=== PATIENT | female | born 1990 | race Caucasian/White ===

== ENCOUNTER 2022-02-08 16:00 | Emergency (ER) | payer OTHER, SELFPAY | END 2022-02-08 17:58 | disposition left against medical advice (07) | PROVIDERS: Emergency Provider Emergency Medicine | DX: R69 Illness, unspecified (principal) ==

== ENCOUNTER 2025-03-24 14:44 | Outpatient (AMB) | payer OTHER, SELFPAY ==
--- NOTE | 2025-03-24 14:47 | A.OFFVIS_ITS ---
Vital Signs 3 03/24/25 14:51 Height 5 ft 7 in Weight 141 lb 2 oz BMI 22.1 BP 119/72 Blood Pressure Location Lt brachial Position Sitting Pulse 85 Pulse Source Pulse Oximeter Pulse Oximetry (%) 100 Oxygen Delivery Method Room Air Intake Visit Reasons: Elbow pain after falling Intake Note: Pain day 02/18 Material Processor Required: No Allergies gabapentin Allergy (Severe, Verified 03/24/25 15:14) Rash [id number] Antimigraine Agents Allergy (Severe, Verified 03/24/25 15:14) Rash HPI Comments Details: The patient is a 34-year-old female presenting with chronic right elbow pain following a proximal radial head fracture. The injury occurred in November 2023 when she fell while roller skating after being collided with by a child, resulting in a fall on her right side. Initially, she experienced immediate pins and needles in her right forearm and hand and inability to use her right thumb, prompting an [facility] ER visit where no fracture was initially detected. She reports right elbow and hand pain with daily use or leaning with elbow against hard surfaces which causes immediate numbness and tingling in her right hand and elbow. Subsequent Urgent care evaluation at [facility] confirmed a proximal radial head fracture, and she was placed in a removable half cast for several weeks. Despite treatment, the fracture did not heal properly, leading to a radial head deformity as confirmed by a recent MRI arthrogram at [facility] per patient. Denies previous EMG or cervical spine imaging studies. Shoulder xrays were normal. Patient was seen at [facility] today and received right elbow cortisone injection with no relief so far. She is currently at PT, has not done OT therapy. The patient reports persistent pain and pins and needles sensation in the right hand, particularly right thumb and 3rd through 5th digits. She also experiences neck pain and pre-existing Chiari malformation, although no recent imaging has been conducted for this condition. She follows with Neurology, Dr. Nieto. The patient has a history of bursitis in the hip, for which she receives periodic steroid injections, and migraines, which have been managed with propranolol, albeit with limited success. She is allergic to gabapentin, which causes hives and rash, and has experienced adverse effects from Cymbalta, leading to its discontinuation. 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 She is right hand dominant. - Onset: Pain began following a fall in November 2023. - Quality: Described as constant pain with pins and needles sensations, throbbing, shooting, sharp, sore, aching, exhausting, radiating. - Location: Primarily in the right elbow, radiating to the hand. Intermittent neck pain with yes and no movements. - Exacerbating factors: Neck movements and certain arm positions increase pain (holding elbow against hard surfaces). - Relieving factors: None explicitly mentioned. - Affect: Pain impacts daily activities and mood, causing frustration. - Analgesia: Current medications include propranolol for migraines; meloxicam; previous use of Cymbalta was discontinued due to adverse effects. - Adverse Effects: Allergic reaction to gabapentin, adverse effects from Cymbalta. - Activities of Daily Living: Pain limits ability to lift children and perform household tasks. - Aberrant Drug Related Behaviors: None reported. 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 Family history of DVT Family history of breast cancer Diarrheal stools Chronic constipation Cervicalgia Cervical radiculitis Biliary dyskinesia Allergic rhinitis Arnold-Chiari malformation, type I Depression Anxiety RLS (restless legs syndrome) Basilar migraine Migraine without aura Surgical History (Updated 03/24/25 @ 15:14 by Corazon Siddiqui) History of oral surgery History of colonoscopy History of ankle surgery Family History (Updated 03/24/25 @ 15:21 by Corazon Siddiqui) Sister Alcoholism Mother Hypertension Hyperlipidemia Peripheral vascular disease Father Alcohol abuse Hyperlipidemia Hypertension Maternal Grandfather Colon cancer Paternal Aunt Breast cancer Social History Household Members: Spouse, Significant Other and Children Alcohol intake: current Alcohol intake frequency: a few times a month Patient Tobacco Use Status: Current everyday Tobacco user Cigarettes Per Day: 9 Current occupational status: unemployed Review of Systems Const Details: - Musculoskeletal: Reports chronic right elbow pain, neck pain, and hip bursitis. - Neurological: Reports pins and needles sensation in the right hand, migraines. - Allergic/Immunologic: Reports allergy to gabapentin causing hives and rash. - General: Denies diabetes. All systems reviewed & are unremarkable except as noted in HPI and below Physical Exam Vital Signs: Last Vital Signs Pulse 85 03/24/25 14:51 BP 119/72 03/24/25 14:51 Pulse Ox 100 03/24/25 14:51 Oxygen Delivery Method Room Air 03/24/25 14:51 BMI result Body Mass Index 22.1 General: Appears afebrile. Alert and oriented. Mood and affect appropriate. Follows and participates in conversation appropriately. Respiratory effort is unlabored. No cough. Able to transition from sit to stand unassisted. Ambulates with bilaterally normal heel strike and toe off. Neck Neck: Yes normal visual inspection, Yes full ROM, Yes no lymphadenopathy, Yes trachea midline, Yes supple, No anterior neck swelling, Yes no JVD, No prominent supraclavicular fat pad and No prominent dorsocervical fat pad Back/Spine/Pelvis Cervical Spine: normal cervical lordosis, No Lhermitte's sign positive, cervical muscular tenderness, pain with cervical ROM (with flexion and extension), No Cervical spine scars present, No cervical spasm and No Cervical spine tenderness Extrem General: Yes capillary refill normal, Yes no clubbing, cyanosis or edema and Yes no calf tenderness Right upper extremity: shoulder/upper arm Details: normal to inspection and normal ROM; no tenderness, no swelling, no ecchymosis, no crepitus and no unusual warmth, elbow/forearm (Limited ROM due to pain) Details: normal to inspection, tenderness Location: of the lateral epicondyle and of the radial head, crepitus and distal pulses intact; no swelling, no unusual warmth and no ecchymosis and wrist (+Phalen's, +Tinel's sign on the right. ) Details: tenderness, normal ROM (wrist pain with flexion), radial pulse present, ulnar pulse present and other (pins and needles in right thumb and right 3-5th digits); no swelling, no unusual warmth and no ecchymosis Results Reviewed Results Reviewed: 202212/03/2023 Assessment & Plan Assessment & Plan (1) Chronic pain of right elbow: Code(s): M25.521 - Pain in right elbow; G89.29 - Other chronic pain (2) Paresthesia of right upper extremity: Code(s): R20.2 - Paresthesia of skin Category: Medical (3) Cervical radiculitis: Code(s): M54.12 - Radiculopathy, cervical region Category: Medical (4) Cervicalgia: Code(s): M54.2 - Cervicalgia Category: Medical Plan We will proceed with EMG and NVC studies to assess for nerve compression, particularly focusing on the ulnar, median, and radial nerves, to determine the source of the pins and needles sensation and pain in the right hand and rule out cervical radiculopathy. Medical release request sent to [facility], [facility], and [facility] for previous right elbow imaging and procedures for review. Cervical spine x-ray will be conducted to evaluate any potential cervical spine issues that may be contributing to the patient's symptoms, especially given the history of neck pain and Chiari malformation. The patient will be referred to a Hand specialist for further evaluation and management of the elbow pain and potential neuropathy. The patient is advised to continue with current medications and to avoid gabapentin due to allergy. All questions and concerns have been answered and patient agreed with the plan. Follow-up will be scheduled to review the results of the diagnostic tests and to adjust the management plan accordingly. Patient was informed and verbally consented to the use of an ambient scribe for clinic note documentation during this visit. Orders: Orders 2 NE nerve conduction velocity Today G56.01 - Carpal tunnel syndrome, right upper limb, G89.29 - Other chronic pain, M25.521 - Pain in right elbow, R20.2 - Paresthesia of skin XR cervical spine w flex/ext Today M54.2 - Cervicalgia NE electromyogram (EMG) Today G56.01 - Carpal tunnel syndrome, right upper limb, G89.29 - Other chronic pain, M25.521 - Pain in right elbow, R20.2 - Paresthesia of skin Referrals 2 Hand Surgery Referral G89.29 - Other chronic pain, M25.521 - Pain in right elbow, R20.2 - Paresthesia of skin Coding Level of Care Code New Pt Level 4 (68771) Diagnoses Chronic pain of right elbow M25.521; G89.29 Paresthesia of right upper extremity R20.2 Cervical radiculitis M54.12 Cervicalgia M54.2
[2025-03-24 14:51] VITALS: BP 119/72; PULSE 85; O2SAT 100; BMI 22.1
--- OUTSIDE RECORDS SUMMARY | 2025-03-24 16:00 | XMS_ITS | Continuity of Care Document ---
Author Organization [place] - [facility], KURT[facility] 1st Floor Address [address] [place] [address] Care Team Providers Care Radarman Name Role Phone BILLINGSLEYCUONG COLLADO Primary Care Provider Assessment No assessment recorded. Plan of Treatment Reminders Order Date Submit Date Provider Last Modified By Organization Details Last Modified Time Details Appointments RECHECK 2024 11:00A M Wesley Castle MD Not available Not available Not available RECHECK 15 2024 11:00A M April Montoya PA-C Not available Not available Not available Lab None recorded . Referral None recorded . Procedures None recorded . Surgeries None recorded . Imaging None recorded . Medication Orders None recorded . Patient TargetsNo targets recorded. Patient InstructionsNo instructions recorded. Reason for Referral None Reported. Results Created Date Observation Date Name Description Value Unit Range Abnormal Flag Note LastModifiedBy Organization Detail LastModifiedTime 03/11/20 25 03/11/2025 arthr ogram fluor oscop ic girish nce needl e place ment CPT 57849 / right [facility] te MRI- [facility] Access ion Number : [id number] Bri t Name: Halley Ramirez l Record Number : [id number] Date of : 1989 Date of Exam: 2024 Referr ing Physic jonel: Wesley Castle @ [facility] [address] [place] [address] Exam: RF Arthro gram Fluoro scopic Guidan ce Needle Placem ent CPT 66652 - Right Room Descri ption: [facility] Siem CS Fluoro CLINIC AL INDICA TION: Pain in the right elbow COMPAR DUSTIN: None FLUORO SCOPIC TIME: 0.4 minute s. FLUORO SCOPIC IMAGES : 6 Dose Area Produc t (DAP): 19.27 uGy*m2 TECHNI QUE AND : The proced ure was perfor med by Dr. Melanie hsu. The proced ure and its risks were explai dionisio to the patien t. Inform ed consen t was obtain ed and placed in chart. A timeou t proced ure was perfor med. The contra st soluti on was made by combin ing 250 cc of normal saline with 0.5 cc of Elucir em. 15 cc of this soluti on was mixed with 5 cc of Isovue -300. Under fluoro scopic guidan ce, an approp riate site for skin punctu re was determ ined. The skin was and draped in the usual steril e fashio n. The skin and subcut aneous tissue s were anesth etized with 1% lidoca ine. The right elbow joint was entere d with a 1.5 inch, 22 gauge needle . A small amount of Isovue 300 was inject ed to confir m intra- articu lar locati on of the needle . After confir jac proper placem ent, a total of 4.5 cc of the contra st soluti on was then inject ed. The needle was remove d. The patien t tolera alen the proced ure withou t any immedi ate compli cation s. FINDIN GS: Contra st appear s intra- articu lar. IMPRES YUSUF: Fluoro scopic ally guided right elbow arthro gram. MRI will be acquir ed and dictat ed separa tely. Electr onical ly Signed By: La Nena Navarro ra, MD [email or web address] [facility] [address], [place], [address], 03/11/2025 15:35:11 03/11/20 25 03/11/2025 rf, arthr ogram elbow inj right CPT 96259 [facility] MRI- [facility] Access ion Number : [id number] Patien t Name: Halley Ramirez Record Number : [id number] Date of : 1989 Date of Exam: 2024 Referr ing Physic jonel: Wesley Castle @ [facility] [address] [place] [address] Exam: RF Arthro gram Elbow Inj CPT 62502 - Right Room Descri ption: [employer] Siem CS Fluoro CLINIC AL INDICA TION: Pain in the right elbow COMPAR DUSTIN: None FLUORO SCOPIC TIME: 0.4 minute s. FLUORO SCOPIC IMAGES : 6 Dose Area Produc t (DAP): 19.27 uGy*m2 TECHNI QUE AND : The proced ure was perfor med by Dr. Melanie hsu. The proced ure and its risks were explai dionisio to the patien t. Inform ed consen t was obtain ed and placed in chart. A timeou t proced ure was perfor med. The contra st soluti on was made by combin ing 250 cc of normal saline with 0.5 cc of Elucir em. 15 cc of this soluti on was mixed with 5 cc of Isovue -300. Under fluoro scopic guidan ce, an approp riate site for skin punctu re was determ ined. The skin was and draped in the usual steril e fashio n. The skin and subcut aneous tissue s were anesth etized with 1% lidoca ine. The right elbow joint was entere d with a 1.5 inch, 22 gauge needle . A small amount of Isovue 300 was inject ed to confir m intra- articu lar locati on of the needle . After confir jac proper placem ent, a total of 4.5 cc of the contra st soluti on was then inject ed. The needle was remove d. The patien t tolera alen the proced ure withou t any immedi ate compli cation s. FINDIN GS: Contra st appear s intra- articu lar. IMPRES YUSUF: Fluoro scopic ally guided right elbow arthro gram. MRI will be acquir ed and dictat ed separa tely. Electr onical ly Signed By: La Nena Navarro ra, MD [email or web address] [facility] ([facility] [address], [place], [address], 03/11/2025 15:35:11 03/12/20 25 03/11/2025 MRI, elbow , w/ contr ast [facility] te MRI- [facility] Access ion Number : [id number] Patien t Name: Halley Ramirez Record Number : [id number] Date of : 1989 Date of Exam: 2024 Referr montserrat Physic jonel: Wesley Castle @ [facility] [address] [place] [address] Exam: MR Elbow (C+) CPT 03668 (Post Arthro gram) - Right Room Descri ption: [facility] Verio 3.0T CLINIC AL HISTOR Y: Pain in the right elbow. The patien t report s modera te to severe diffus e consta nt right elbow pain for one year. Histor y of a radial head fractu re in January 2024. TECHNI QUE: MR arthro gram of the right elbow was perfor med after the intra- articu lar inject ion of dilute gadoli nium. COMPAR DUSTIN: Fluoro scopic arthro gram images of same date.. FINDIN GS: Ligame nts and tendon s: The ulnar collat eral, radial collat eral and latera l ulnar collat eral ligame nts appear intact . Focal contra st along the proxim al aspect of the extens or digito rum and small amount along the latera l aspect of the supina tor likely relate s to the inject ion. There is mild tendin opathy of the common extens or origin . The common flexor origin appear s intact . The distal biceps and distal tricep s appear s intact . Ulnar nerve: Normal , and in the groove . Bone and bone marrow : There is healed deform ity of the proxim al radius . No acute fractu re or abnorm al bone marrow signal . Articu lar cartil age: No focal lesion s are seen. IMPRES YUSUF: Healed deform ity of the proxim al radius withou t focal chondr al defect . Intact appear ance of the collat eral ligame nts. Mild tendin opathy of the common extens or origin . Electr onical ly Signed By: La Nena Navarro ra, MD [email or web address] [facility] [address], [place], [address], 03/12/2025 13:09:48 Result Notes None recorded. Problems Name Problem SNOMED Code Status Onset Date Resolution Date Notes Provider Name and Address Organization Details Recorded Time Pain of hip region 72615971 Active 2023 ELI SAVAGE null, [facility] 4 11:41:40 Pain of hip region 11388340 Active 2024 Desire macdonald PA-C [address], [place], [address], [facility] 5 14:05:36 Follow- up status 769757625 Active 2024 David Jimenez PA-C [address], [place], [address], [facility] 5 10:36:14 Pain of right elbow joint 30926614551527730 Active 2023 TISH jefferson, [facility] 4 15:48:06 Problem Notes None recorded. Procedures Surgical History Date Name Laterality Status Provider Name and Address Organization Details Recorded Time 025 Elbow Depo 1cc Injection, L/R completed Wesley Castle MD [address], [place], [address], [facility] 03/24/2025 14:21:47 025 Lateral Epicondylitis Celestone 1cc Injection, L/R completed April Montoya PA-C [address], [place], [address], [facility] 01/01/2025 14:30:26 025 Medial Epicondylitis Celestone 1cc Injection, L/R completed April Montoya PA-C [address], [place], [address], [facility] 01/01/2025 14:30:42 025 Hip Kenalog 1cc Injection, L/R completed Barbara Salazar PA-C [address], [place], [address], [facility] 11/18/2024 11:51:00 025 Gastrointestinal Surgery completed NICOLE HUTSON [facility] 02/14/2025 09:38:59 024 Hip Kenalog 2cc Injection, L/R completed Kayy Moreno PA-C [address], [place], [address], [facility] 07/08/2024 15:23:14 009 Ankle/Foot Surgery completed Robert Mayes [facility] 11/11/2024 09:43:14 Imaging Results None recorded. Procedure Notes None recorded. Medical Equipment None Reported. Allergies Allergen ID Allergen Name Allergen Category Reaction Reaction Severity Criticality Documentation Date Start Date Code Code System Note Provider Name and Address Organization Details Recorded Time 556779 tramadol medicatio n Not available Not available Not available 12/05/2023 74787 RxNorm Robert Mayes [facility] 5 09:43:09 877029 sumatript an medicatio n Not available Not available Not available 12/05/2023 23874 RxNorm COLEEN GRAY [facility] 4 15:59:43 452850 gabapenti n medicatio n rash moderate Not available 03/24/20252014 15058 RxNorm NICOLE HUTSON [facility] 5 11:22:28 Medications Name Sig Start Date Stop Date Status Note LastModified by Organization Details LastModified Time cyclobenzap rine 10 mg tablet TAKE 1 TABLET BY MOUTH 3 TIMES A DAY,X3 DAYS, NEEDED FOR SPASM 12/25 completed Not Available Not Available Not Available acetaminoph en 325 mg tablet TAKE 2 TABLETS BY MOUTH 4 TIMES A DAY NEEDED FOR PAIN X7 DAYS 12/04 completed Not Available Not Available Not Available prednisone 10 mg tablet 6 TABLETS BY MOUTH X 3 DAYS, 4 TABS X 3 DAYS, 2 TABS X 3 DAYS 12/04 completed Not Available Not Available Not Available ibuprofen 800 mg tablet TAKE 1 TABLET BY MOUTH EVERY 8 HOURS 12/25 completed Not Available Not Available Not Available tizanidine 4 mg tablet Take 1 tablet every 8 hours by oral route as needed. active Not Available Not Available No t Available ondansetron HCl 8 mg tablet TAKE 1 TABLET BY MOUTH EVERY 8 HOURS NEEDED FOR NAUSEA AND VOMITING active Not Available Not Available No t Available meloxicam 15 mg tablet Take 1 tablet every day by oral route after meal(s) for 30 days. 2024 active Not Available Not Available Not Avai lable naproxen 250 mg tablet 12/25 completed Not Available Not Available Not Available penicillin V potassium 500 mg tablet active Not Available Not Available Not Available hydroxyzine HCl 50 mg tablet TAKE 1 TABLET BY MOUTH FOUR TIMES A DAY NEEDED FOR ANXIETY 12/25 completed Not Available Not Available Not Available sulfamethox azole 800 mg-trimetho prim 160 mg tablet TAKE 1 TABLET BY MOUTH EVERY 12 HOURS FOR 3 DAYS active Not Available Not Available No t Available tramadol 50 mg tablet Take 1 tablet every 6 hours by oral route after meal(s). 2024 active Not Available Not Available Not Avai lable butalbital- acetaminoph en-caffeine 50 mg-325 mg-40 mg tablet TAKE 1-2 TABLETS ORALLY A DAY NEEDED FOR MIGRAINE 30 DAYS active Not Available Not Available No t Available propranolol 10 mg tablet TAKE 1 TABLET BY MOUTH TWICE A DAY active Not Available Not Available No t Available methocarbam ol 750 mg tablet TAKE 2 TABLETS BY MOUTH 3 TIMES A DAY FOR 5 DAYS THEN REDUCE TO 1 TAB 3 TIMES A DAY NEEDED 12/25 completed Not Available Not Available Not Available diazepam 2 mg tablet TAKE 1 TABLET BY MOUTH THREE TIMES A DAY NEEDED FOR SPASM 12/04 completed Not Available Not Available Not Available baclofen 10 mg tablet TAKE 1 TABLET BY MOUTH 3 TIMES A DAY 12/04 completed Not Available Not Available Not Available pantoprazol e 40 mg tablet,soleadd yed release TAKE 1 TABLET BY MOUTH EVERY DAY active Not Available Not Available No t Available gabapentin 300 mg capsule TAKE 1 CAPSULE BY MOUTH EVERYDAY AT BEDTIME active Not Available Not Available No t Available norethindro ne acetate 5 mg tablet TAKE 1 TABLET BY MOUTH EVERY DAY 12/04 completed Not Available Not Available Not Available gabapentin 100 mg capsule TAKE 1 CAPSULE BY MOUTH THREE TIMES A DAY 12/25 completed Not Available Not Available Not Available ibuprofen 600 mg tablet TAKE 1 TABLET BY MOUTH 4 TIMES A DAY X7 DAYS 12/04 completed Not Available Not Available Not Available methylpredn isolone 4 mg tablets in a dose pack take as directed active Not Available Not Available No t Available oxycodone 5 mg tablet TAKE 1 TABLET BY MOUTH EVERY 6 HOURS NEEDED FOR PAIN active Not Available Not Available No t Available enoxaparin 80 mg/0.8 mL subcutaneou s syringe INJECT 0.8 ML SUBCUTANE OUSLY EVERY 12 HOURS FOR 7 DAYS 12/04 completed Not Available Not Available Not Available cyclobenzap rine 5 mg tablet PLEASE SEE ATTACHED FOR DETAILED DIRECTION S 12/04 completed Not Available Not Available Not Available duloxetine 20 mg capsule,del ayed release TAKE 1 CAPSULE BY MOUTH TWICE A DAY active Not Available Not Available No t Available cholecalcif margarita (vitamin D3) 1,250 mcg (50,000 unit) capsule TAKE 1 CAPSULE BY MOUTH EVERY WEEK active Not Available Not Available No t Available diclofenac 1 % topical gel APPLY TO AFFECTED AREA 4 TIMES A DAY 12/04 completed Not Available Not Available Not Available butalbital- acetaminoph en-caffeine 50 mg-300 mg-40 mg capsule 2 CAPSULE BY MOUTH EVERY 4 HOURS, NEEDED,NO T TO EXCEED 6 CAPSULES/ DAY 12/04 completed Not Available Not Available Not Available Xarelto 20 mg tablet TAKE 1 TABLET BY MOUTH EVERY DAY WITH SUPPER 12/04 completed Not Available Not Available Not Available butalbital 50 mg-acetamin ophen 300 mg-caffeine 40 mg-codeine 30 mg cap TAKE 1 CAPSULE BY MOUTH EVERY 6 HOURS NEEDED FOR HEADACHE active Not Available Not Available No t Available Vitals Date Recorded Body height Body mass index (BMI) Body weight Provider Name and Address Organization Details Last Updated DateTime 03/24/2025 170.18 cm 20.4 kg/m2 31691.01 g NICOLE HUTSON [place] - [facility] 03/24/2025 11:22:36 Social History None recorded. Functional Status None recorded. Mental Status None recorded. Family History Nothing Reported. Medical History Condition Response Allergies/Hayfever N Coronary Artery Disease N Anxiety/Depression N Emphysema N Thyroid Problems N COPD N Pacemaker N Anemia N Kidney/Bladder Problems N Vascular Disease N Heart Attack ([place]) N Gastrointestinal Disease N Diabetes N Autoimmune disease N Bleeding Disorder N Orthotics N Arthritis N Seizures/Epilepsy N Blood Clot N AIDS/HIV N Congestive Heart Failure (CHF) N Acid Reflux (GERD) N Cancer N Stroke N Asthma N Peripheral Vascular Disease N Sleep Apnea N Hepatitis N Heart Disease N Rheumatoid Arthritis N Arrhythmia N Pulmonary Embolism N Fibromyalgia N Hypertension N Osteoporosis N Gynecological HistoryNo gynecological history recorded. Obstetrics History GPAL:G 0 P 0 0 0 0 Past Encounters Encounter ID Performer Location Encounter Start Date Encounter Closed Date Diagnosis/Indication Diagnosis SNOMED-CT Code Diagnosis ICD10 Code Diagnosis Note [id number] MD KURT[facility] Sullivan 1st [address] [place] [address] 03/24/2025 11:19:14 03/24/2025 14:22:24 Arthritis of right elbow [id number] 295754 M19.021 Health Concerns Section Related Observation LastModified by Organization Detai ls LastModified Time None Recorded Concern Status LastModified by Organization Details LastModified Time None Recorded Payers Encounter Date Sequence Insurance Name Policy Number Policy [place] Covered Member ID [place] Member ID Guarantor Name 03/24/[address] [place] [address] Noosh [facility] (MEDICAID HMO) [id number] Halley Woody [id number] Halley Woody Notes Date Note Type Note Provider Name and Address Organization Details Recorded Time 03/24/2025 text/html Diagnosis: Right elbow pain status post radial neck fracture The patient returns at our request. She continues to describe pain over her right elbow. It is currently a 5/10 in severity. She has undergone an MRI arthrogram. Past family, medical, social history and review of systems has been reviewed, updated and is located in the patient s chart. Examination: Healthy appearing patient in no apparent distress. Alert and oriented. Mildly reduced right elbow range of motion compared to the left. Provocative testing of both elbows reveals no instability. The patient is exquisitely tender over her lateral ulnohumeral articulation. No atrophy in either upper extremity. Brisk capillary refill in all digits I independently reviewed an MRI arthrogram of the patient's right elbow. Her ligamentous structures appear to be intact. There are no loose bodies. Plan: The patient continues to describe pain from an intra-articular source despite a relatively normal MRI arthrogram. I have offered her an intra-articular injection. She tolerated this well. She will follow-up with me in 4 to 6 weeks. If her response to the injection was strong but temporary I would consider a repeat injection. Wesley Castle MD [address] [place] [address] [address], [place], [address], [facility] - [facility] 03/24/2025 14:22:22 OBGyn Episode No OBEpisode recorded.
== END 2025-03-24 15:23 | disposition home or self-care (01) ==
LOC: HO.PMC 14:45
PROVIDERS: PCP Internal Medicine; Referring Provider Internal Medicine; Visit Provider Nurse Practitioner Family
DX: M25.521 Pain in right elbow (principal); G89.29 Other chronic pain; R20.2 Paresthesia of skin; M54.12 Radiculopathy, cervical region; M54.2 Cervicalgia
CPT/HCPCS: 99204

== ENCOUNTER 2025-03-24 15:29 | Outpatient (REF) | payer OTHER, SELFPAY ==
--- NOTE | ~2025-03-24 | XR_ITS ---
EXAMINATION: XR CERVICAL SPINE CLINICAL INFORMATION: M54.2 - Cervicalgia COMPARISON: None available. TECHNIQUE: AP, AP open mouth, and lateral: Flexion, neutral, and extension view x-rays of the cervical spine. FINDINGS: There is no prevertebral soft tissue swelling. On the neutral image, there is reversal cervical lordosis. During extension, there is near normal lordosis. During flexion, there is hyperkyphosis between C4-C6. There is no sign of instability. C5-6 images mild disc space narrowing. XR/XR cervical spine w flex/ext IMPRESSION: There is straightening of the expected cervical lordosis. This can be idiopathic, but can also be related to degenerative change, muscle spasm, or posterior soft tissue injury. Electronically signed by: Kervin Tejada MD 03/24/2025 04:18 PM EDT
== END 2025-03-24 15:30 | disposition home or self-care (01) ==
LOC: HO.XRAY 15:29
PROVIDERS: PCP Internal Medicine; Visit Provider Nurse Practitioner Family
DX: M25.521 Pain in right elbow (principal); M54.12 Radiculopathy, cervical region; M54.2 Cervicalgia; R20.2 Paresthesia of skin; G89.29 Other chronic pain
CPT/HCPCS: 72052; 99202

== ENCOUNTER → 2025-03-24 15:33 | Outpatient (BNV) | payer OTHER, SELFPAY | PROVIDERS: PCP Internal Medicine; Visit Provider Radiology Diagnostic Radiology | DX: M54.2 Cervicalgia (principal) | CPT/HCPCS: 72052 ==

== ENCOUNTER → 2025-04-15 07:47 | Outpatient (BNVA) | payer SELFPAY | PROVIDERS: PCP Internal Medicine | DX: Z02.89 Encounter for other administrative examinations (principal) ==